=== PATIENT | female | born 1985 | race African-American/Black ===

== ENCOUNTER 2024-10-21 08:28 | Emergency (ER) | payer MEDICAID ==
[~2024-10-21] VITALS: Ht 175.3 cm; Wt 127.0 kg
[~2024-10-21 08:28] MED LIST: FERR325T6 MT
[2024-10-21] MEDS: DEXAMETHASONE 10 MG/ML VIAL PO ONE (08:56)
[2024-10-21 08:58] VITALS: BP 123/75; TEMP 36.8; O2SAT 100
[2024-10-21 08:59] LABS: BASOPHILS % 0.6 % (0.0-2.0); EOSINOPHILS % 4.1 % (0.0-5.0); HEMATOCRIT. 31.5 % (36.0-48.0); HEMOGLOBIN. 9.6 g/dL (12.0-16.0); LYMPHOCYTES % 26.1 % (20.0-50.0); MEAN CORPUSCULAR HEMOGLOBIN 23.1 pg (28.0-32.0); MEAN CORPUSCULAR HGB CONC 30.6 g/dL (31.0-37.0); MEAN CORPUSCULAR VOLUME 75.6 fL (81.0-99.0); MEAN PLATELET VOLUME 8.8 fl (7.4-10.4); MONOCYTES % 4.4 % (2.0-8.0); NEUTROPHILS % 64.8 % (40.0-76.0); PLATELET 445 x1000/uL (130-400); RED BLOOD CELL COUNT 4.16 mill/uL (4.2-5.4); RED CELL DISTRIBUTION WIDTH 26.5 % (11.6-14.6); WHITE BLOOD COUNT 8.8 x1000/uL (4.5-11.0)
[2024-10-21] MEDS ORDERED: ALBUTEROL (0.083%) 2.5MG/3ML NEB HHN SCH (09:00)
[2024-10-21 09:04] LABS: DIFFERENTIAL COMMENT 1
[2024-10-21 09:05] LABS: ADD RBC MORPHOLOGY YES
[2024-10-21 09:07] VITALS: PULSE 63; RESP 18; O2SAT 100
[2024-10-21 09:07] LABS: CHLORIDE 108 mEq/L (98-107); POTASSIUM 3.5 mEq/L (3.5-5.1); SODIUM 138 mEq/L (136-145)
[2024-10-21] MEDS: IPRATROPIUM BROMIDE (0.02%) 0.5MG/2.5ML NEB HHN STA (09:07)
[2024-10-21 09:08] LABS: CALCIUM 9.2 mg/dL (8.7-10.4); CARBON DIOXIDE 24 mEq/L (21-32)
[2024-10-21 09:13] LABS: CREATININE 0.9 mg/dL (0.6-1.0); GLUCOSE 89 mg/dL (70-105); HCG SCREEN NEGATIVE; UREA NITROGEN BLOOD 7 mg/dL (9-23)
[2024-10-21 09:32] LABS: PLATELET ESTIMATE INCREASED
[2024-10-21 09:33] LABS: ANISOCYTOSIS 3+; HYPOCHROMASIA 1+; MICROCYTOSIS 1+
== END 2024-10-21 10:11 | disposition home or self-care (01) ==
LOC: ER 08:28
DX: J44.1 Chronic obstructive pulmonary disease with (acute) exacerbation (principal)
CPT/HCPCS: 80048; 84703; 85025; 36415; 71045; 94640; 93005; 99291; J1100; Z7610 ×2; 94070

== ENCOUNTER 2025-01-21 09:25 | Emergency (ER) | payer MEDICAID ==
[~2025-01-21] VITALS: Ht 162.6 cm; Wt 120.0 kg
[2025-01-21 10:35] LABS: BASOPHILS % 0.9 % (0.0-2.0); EOSINOPHILS % 1.8 % (0.0-5.0); HEMATOCRIT. 22.7 % (36.0-48.0); LYMPHOCYTES % 28.6 % (20.0-50.0); MEAN PLATELET VOLUME 8.8 fl (7.4-10.4); MONOCYTES % 5.8 % (2.0-8.0); NEUTROPHILS % 62.9 % (40.0-76.0); PLATELET 415 x1000/uL (130-400); RED BLOOD CELL COUNT 3.39 mill/uL (4.2-5.4); RED CELL DISTRIBUTION WIDTH 20.7 % (11.6-14.6)
[2025-01-21 10:44] LABS: ADD RBC MORPHOLOGY YES; HEMOGLOBIN. 6.8 g/dL (12.0-16.0); INR 1.0
[2025-01-21 10:48] LABS: CREATININE 0.9 mg/dL (0.6-1.0)
[2025-01-21 10:49] LABS: TROPONIN I HIGH SENSITIVITY < 4 ng/L (3.0-34); UREA NITROGEN BLOOD 11 mg/dL (9-23)
[2025-01-21 10:52] VITALS: PULSE 67; RESP 18; O2SAT 97
[2025-01-21] MEDS: ALBUTEROL (0.083%) 2.5MG/3ML NEB HHN ONE (10:52)
[2025-01-21 11:04] LABS: PLATELET ESTIMATE SLIGHTLY INCREASED
[2025-01-21 11:42] LABS: BG DEOXYHEMOGLOBIN 69.4 % (0.0-5.0)
[2025-01-21 12:00] LABS: TROPONIN I HIGH SENSITIVITY 4 ng/L (3.0-34)
[2025-01-21 14:04] LABS: HCG SCREEN NEGATIVE
[2025-01-21 18:35] VITALS: BP 114/66; PULSE 73; RESP 17; TEMP 36.9; O2SAT 100
== END 2025-01-21 18:36 | disposition home or self-care (01) ==
LOC: ER 09:25 → CANBEDREQ 16:03 → ER 18:36
DX: D64.9 Anemia, unspecified (principal); J44.89 Other specified chronic obstructive pulmonary disease
CPT/HCPCS: 80048; 84703; 85025; 85610; 86850; 86900; 86901; 86920; 84484; 36415; 71045; 94640; 82375; 82803; 93005; 99285; Z7610 ×3; 36430; P9016

== ENCOUNTER 2025-06-03 00:03 | Emergency (ER) | payer MEDICAID ==
[~2025-06-03] VITALS: Ht 177.8 cm; Wt 109.0 kg
[2025-06-03 00:07] VITALS: O2SAT 100
[2025-06-03 01:45] LABS: BASOPHILS % 0.8 % (0.0-2.0); EOSINOPHILS % 2.3 % (0.0-5.0); HEMATOCRIT. 21.7 % (36.0-48.0); LYMPHOCYTES % 37.4 % (20.0-50.0); MEAN PLATELET VOLUME 9.2 fl (7.4-10.4); MONOCYTES % 5.4 % (2.0-8.0); NEUTROPHILS % 54.1 % (40.0-76.0); PLATELET 324 x1000/uL (130-400); RED BLOOD CELL COUNT 3.20 mill/uL (4.2-5.4); RED CELL DISTRIBUTION WIDTH 24.3 % (11.6-14.6)
[2025-06-03 01:54] LABS: CREATININE 0.8 mg/dL (0.6-1.0); UREA NITROGEN BLOOD 10 mg/dL (9-23)
[2025-06-03 01:55] LABS: PROTEIN TOTAL 6.5 g/dL (6.0-8.3)
[2025-06-03 01:56] LABS: ASPARTATE AMINOTRANSFERASE 13 IU/L (<34); BILIRUBIN DIRECT < 0.1 mg/dL (<=3.0); BILIRUBIN TOTAL 0.2 mg/dL (0.1-1.0); TROPONIN I HIGH SENSITIVITY 4 ng/L (3.0-34)
[2025-06-03 02:10] LABS: ADD RBC MORPHOLOGY YES; HEMOGLOBIN. 6.3 g/dL (12.0-16.0)
[2025-06-03 03:35] LABS: HCG SCREEN NEGATIVE
[2025-06-03 03:50] LABS: TROPONIN I HIGH SENSITIVITY 5 ng/L (3.0-34)
[2025-06-03 04:07] LABS: PLATELET ESTIMATE NORMAL
[2025-06-03 07:46] VITALS: BP 141/91; PULSE 69; RESP 15; TEMP 37.4; O2SAT 100
== END 2025-06-03 07:48 | disposition home or self-care (01) ==
LOC: ER 00:03 → EDBEDREQSVC 04:10 → EDBEDREQ 04:10 → EDBEDREQTM 04:10 → EDBEDREQ 04:11 → ENRESERV 04:47 → CANBEDREQ 07:27 → ER 07:48
DX: J44.9 Chronic obstructive pulmonary disease, unspecified (principal); F10.90 Alcohol use, unspecified, uncomplicated; D64.9 Anemia, unspecified; Z79.899 Other long term (current) drug therapy; R06.02 Shortness of breath; Y90.9 Presence of alcohol in blood, level not specified
CPT/HCPCS: 36415; 36430; 71045; 80048; 80076; 83880; 84484; 84703; 85025; 85379; 86850; 86900; 86920; 93005; 99285; P9016